=== PATIENT | male | born 1985 | race Caucasian/White ===

== ENCOUNTER 2019-08-20 17:48 | Emergency (ER) | payer OTHER ==
[~2019-08-20] VITALS: Ht 162.6 cm; Wt 92.5 kg
[2019-08-20] MEDS ORDERED: BACTRIM DS TAB1 EACH PO (18:09)
[2019-08-20] MEDS ORDERED: CLEOCIN HCL300 MG PO (18:20)
== END 2019-08-20 18:30 | disposition home or self-care (01) ==
LOC: ED 17:48
DX: I89.1 Lymphangitis (principal); I10 Essential (primary) hypertension; Z87.891 Personal history of nicotine dependence; Z79.899 Other long term (current) drug therapy
CPT/HCPCS: 99283